=== PATIENT | female | born 1960 | race Caucasian/White ===

== ENCOUNTER 2024-05-23 12:45 | Day surgery (SDC) | payer BC, SELFPAY ==
[2024-05-22 10:24] VITALS: BMI 24.3
[2024-05-23 13:06] VITALS: BP 125/69; PULSE 63; RESP 18; TEMP 36.7; O2SAT 99
[2024-05-23] MEDS: LACTATED RINGERS 1000ML 1,000 ML 50 ML IV (13:23)
--- NOTE | 2024-05-23 13:37 | P.HP_ITS ---
History of Present Illness *Admission Date: 05/23/24 *Reason for visit:: Family history of colon cancer/personal history of chema nomatous polyps *History of present illness: Mrs. Guallpa is a 63-year-old female who is here for follow-up surveillance colonoscopy at 5 years. She does have prior adenomatous polyps. She had 2 paternal uncles with colon cancer and a father with precancerous polyps. She also had 1 maternal uncle with colon cancer. The examination is deemed medically necessary for surveillance colonoscopy. The patient has been seen, interviewed and examined prior to the procedure by both myself and the anesthesia provider. [facility] Disclaimer: The information contained in this section may have been updated after the patient was seen, as this information can be updated by other users. Medical History IBS (irritable bowel syndrome) Surgical History History of esophagogastroduodenoscopy (EGD) Hx of removal of ovary History of colonoscopy History of cholecystectomy Family History (Updated 05/23/24 @ 13:07 by Amanda Gonzales RN) Other Colon cancer Social History (Updated 05/23/24 @ 13:08 by Amanda Gonzales RN) Smoking Status: Never smoker alcohol intake: never substance use type: denies use current occupational status: retired Travel in the last 8 weeks: None caffeine: Yes Have you lived/traveled outside [place] in past 30 days?: No Contact w/someone who lives/traveled outside US past 30 days?: No Exposure to someone with infectious disease in past 14 days?: No Do you have a fever (greater than 100.4 F or 38 C)?: No Have you tested positive for COVID-19: Yes Exposed to someone with COVID-19 in past 14 days?: No Do you have a sore throat?: No Do you have a cough?: No Do you have any weakness?: No Are you experiencing any nausea/vomitting?: No Do you have any diarrhea?: No Are you experiencing any unusual bleeding?: No Do you have any muscle aches/pain?: No Do you have any abdominal pain?: No Are you experiencing loss of taste or smell?: No Review of Systems Review of Systems Review of systems (narrative): Negative *Cardiovascular Comments: Negative *Gastrointestinal Comments: Negative *Genitourinary Comments: Negative *Musculoskeletal Comments: Negative *Neurologic Comments: Negative Meds Home Medications and Allergies Home Medications ?Medication ?Instructions ?Recorded ?Confirmed ?Type buspirone 10 mg tablet 10 mg PO DAILY 02/07/24 05/23/24 History calcium polycarbophil 625 mg 1,250 mg PO DAILY 02/07/24 05/23/24 History tablet (FiberCon) lorazepam 0.5 mg tablet 0.5 mg PO DAILY PRN esophageal 02/07/24 05/23/24 Rx spasms #30 tabs methylcellulose (laxative) 500 mg 500 mg PO DAILY 02/07/24 05/23/24 History tablet (Citrucel) omeprazole 20 mg capsule,delayed 20 mg PO DAILY 02/07/24 05/23/24 History release plecanatide 3 mg tablet (Trulance) 3 mg PO DAILY 02/07/24 05/23/24 History polyethylene glycol 3350 17 17 g PO DAILY 02/07/24 05/23/24 History gram/dose oral powder (Miralax) simethicone 125 mg capsule (Gas-X 125 mg PO QD-BID PRN Stomach Upset 02/07/24 05/23/24 History Extra Strength) sodium,potassium,mag sulfates 17.5 See Rx Instructions PO .COMPLEX 04/09/24 05/23/24 Rx gram-3.13 gram-1.6 gram oral soln #354 mL (Suprep Bowel Prep Kit) docusate sodium 50 mg capsule 50 mg PO BID 05/22/24 05/23/24 History New Prescriptions to Start Prescriptions: Allergies Allergy/AdvReac Type Severity Reaction Status Date / Time Penicillins Allergy Mild in Verified 05/23/24 13:03 childhood ukn Exam Data for Last 24 hours Vital signs and Labs for Last 24 Hours: Temp Pulse Resp BP Pulse Ox O2 Del Method 98.1 F 63 18 125/69 99 Room Air 05/23/24 13:06 05/23/24 13:06 05/23/24 13:06 05/23/24 13:06 05/23/24 13:06 05/23/24 13:06 I & O for Last 24 hours: Intake & Output 05/20/24 05/21/24 05/22/24 05/23/24 23:59 23:59 23:59 23:59 Weight 137 lb *Routine HEENT Exam Head: Present normocephalic Eye: Present EOMI and PERRL ENT: Present mucous membranes moist *Routine Neck Exam Neck: Present supple *Routine Respiratory Exam Respiratory: Present CTA bilaterally *Routine Cardiovascular Exam Cardiovascular: Present RRR *Routine Abdominal Exam Abdominal: Present soft and normoactive bowel sounds; Absent tenderness *Routine Rectal Exam Rectal:: deferred *Routine Genitalia Exam Genitalia:: deferred *Routine Extremities Exam Extremities: Absent cyanosis, clubbing or edema *Routine Skin Exam Skin: Present warm; Absent rash *Routine Neurological Exam Neurological: Present alert and oriented X3 Assessment and Plan *Assessment and plan (1) Family history of colon cancer: Status: Acute Category: Medical Code(s): Z80.0 - Family history of malignant neoplasm of digestive organs (2) History of colon polyps: Status: Acute Category: Medical Code(s): Z86.0100 - Personal history of colon polyps, unspecified Plan A/P: 1. Personal history of colon polyps and family history of colon cancer with last colonoscopy 5 years ago is the preprocedural diagnosis. The patient will be anesthetized/sedated using MAC sedation. The patient has been seen and examined. Cardiac and lung assessment prior to the examination is stable. Proceed with planned surveillance colonoscopy
--- NOTE | 2024-05-23 13:39 | P.PCN_ITS ---
[facility] Procedure Note Date: 05/23/24 Time: 14:10 Procedure Note:: Colonoscopy Procedure Report: Colonoscopy with cold snare polypectomy Endoscopist: Jamarcus Knowles II, MD Referring physician: Jesus Cuevas MD, [address] [facility] , [place] [address] Date of Procedure: May 23, 2024 Equipment: Olympus 190 variable stiffness pediatric colonoscope Sedation: MAC sedation Indication: Mrs. Guallpa is a 63-year-old female who is here for follow-up screening/surveillance colonoscopy. The patient does have a long history of IBS. The patient reports no abdominal pain, weight loss, change in her bowel habits or rectal bleeding. She does have 2 paternal uncles with colon cancer and a maternal uncle with colon cancer. Her father's had advanced adenomatous polyps. The patient's last colonoscopy was in March 2019 and she did not have any adenomatous polyps at that time. Prior to that she has had adenomatous polyps. The patient is on Trulance and stool softeners. She did get improvement with low FODMAP diet. The patient does have primarily diarrhea with the Trulance and stool softeners. 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 She had an unremarkable right upper quadrant abdominal ultrasound. Her HIDA scan had shown a 97% gallbladder ejection fraction (gallbladder hypercontractility). Procedure: Prior to the procedure, a history and physical exam was performed, and patient's medications and allergies were reviewed. The risks, benefits and alternatives of the sedation and procedure were discussed with the patient. All questions were answered and informed consent was obtained. The patient was brought to the procedure room. Patient identification and proposed procedure were verified by the physician and the nurse. The patient was placed in a left lateral decubitus position and the scope was passed under direct vision. Throughout the procedure, the patient's blood pressure, pulse, and oxygen saturations were monitored continuously. The colonoscopy was accomplished without difficulty. The patient tolerated the procedure well. Findings: On digital rectal examination there was normal rectal tone. There were no external hemorrhoids. The colonoscope was introduced through the anal canal to the rectum and advanced to the cecum. The ileocecal valve and appendiceal orifice were identified. The scope was advanced a short distance into the ileum which appeared grossly normal. The scope was then withdrawn into the colon. There were 2 diminutive polyps in the cecum (3 and 3 mm) which were both removed via cold snare polypectomy. The remaining cecum, ascending, transverse, descending, sigmoid and rectum were grossly normal. There were no other mucosal abnormalities identified. Upon retroflexion within the rectum there were grade 1-2 internal hemorrhoids. The preparation was excellent throughout with Hamilton Preparation Score of 9. The cecal time was 12 minutes. Impression: 1. Diminutive cecal polyps x 2 (3 and 3 mm) 2. Grade 1-2 internal hemorrhoids Plan: I will follow-up the polyp histology and recommend repeat surveillance colonoscopy again in 5 years. I would recommend that the patient add bulking fiber (FiberCon) to her regimen.
[2024-05-23 13:40] VITALS: O2SAT 100
[2024-05-23 14:14] VITALS: BP 84/46; PULSE 69; RESP 16; TEMP 36.6; O2SAT 95
[2024-05-23 14:24] VITALS: BP 116/57; PULSE 72; RESP 18; O2SAT 96
[2024-05-23 14:34] VITALS: BP 107/68; PULSE 58; RESP 16; O2SAT 97
[2024-05-23 14:44] VITALS: BP 115/63; PULSE 51; RESP 18; O2SAT 98
--- NOTE | 2024-05-23 16:08 | P.PNANES_ITS ---
[facility] Disclaimer: The information contained in this section may have been updated after the patient was seen, as this information can be updated by other users. Medical History IBS (irritable bowel syndrome) Surgical History History of esophagogastroduodenoscopy (EGD) Hx of removal of ovary History of colonoscopy History of cholecystectomy Family History (Updated 05/23/24 @ 13:07 by Amanda Gonzales RN) Other Colon cancer Social History (Updated 05/23/24 @ 13:08 by Amanda Gonzales RN) Smoking Status: Never smoker alcohol intake: never substance use type: denies use current occupational status: retired Travel in the last 8 weeks: None caffeine: Yes Have you lived/traveled outside [place] in past 30 days?: No Contact w/someone who lives/traveled outside [place] past 30 days?: No Exposure to someone with infectious disease in past 14 days?: No Do you have a fever (greater than 100.4 F or 38 C)?: No Have you tested positive for COVID-19: Yes Exposed to someone with COVID-19 in past 14 days?: No Do you have a sore throat?: No Do you have a cough?: No Do you have any weakness?: No Are you experiencing any nausea/vomitting?: No Do you have any diarrhea?: No Are you experiencing any unusual bleeding?: No Do you have any muscle aches/pain?: No Do you have any abdominal pain?: No Are you experiencing loss of taste or smell?: No [facility] Anesthesia Checklist Patient Identification Patient Identification: Arm Band Structural Data Admitted From: Home Planned Operative Procedure/s: Colonoscopy Consent for Planned Operative Procedure(s) Verified: Yes Verified Documents: Surgical Consent and History and Physical NPO Status Verified Time NPO: 00:00 Additional verifications Anesthesia Reactions: No Airway Assessment Mallampati Score:: Class II C-Spine Mobility Assessed: Yes TMJ Mobility Assessed: Yes Dentition: Good Dentition Neurological Assessment Level of Consciousness: Awake, Alert and Appropriate Anesthesia Plan Anesthesia Risk discussed: Yes Anesthesia Plan: Verified ASA Class: II Anesthesia Type: MAC
== END 2024-05-23 15:18 | disposition home or self-care (01) ==
PROVIDERS: PCP Family Medicine; Visit Provider Internal Medicine Gastroenterology
PROC: 0DJD8ZZ Inspection of Lower Intestinal Tract, Via Natural or Artificial Opening Endoscopic (ICD-10-PCS; CPT 45378; principal; 2024-05-23 14:00)
DX: K63.5 Polyp of colon (principal); K64.8 Other hemorrhoids; Z80.0 Family history of malignant neoplasm of digestive organs; Z86.0100 Personal history of colon polyps, unspecified
CPT/HCPCS: 45385; J7120